=== PATIENT | male | born 1985 | race Caucasian/White ===

== ENCOUNTER 2018-07-23 15:35 | Emergency (ER) | payer OTHER ==
[2018-07-23 15:40] VITALS: BP 141/94; PULSE 93; RESP 20; TEMP 98.1
--- NOTE | 2018-07-23 16:12 | ED ---
General Adult HPI - General Chief complaint: ENT Stated complaint: cyst in ear Source: patient, RN notes reviewed Mode of arrival: ambulatory Limitations: no limitations - History of Present Illness Initial comments: Patient is a 32-year-old male who presents the emergency department with complaint of left cheek bump for 1 year. He reports that recently it got worse , but has started to get better again. He reports picking at it. He reports having a similar bump in the past removed by his vp of global marketing. Patient denies any recent fever, chills, shortness of breath, chest pain, back pain, abdominal pain, nausea or vomiting, numbness or tingling, headaches or visual changes, or any other complaints. - Related Data Previous Rx's Medication Instructions Recorded Amoxicillin/Potassium Clav 1 each PO Q12HR 7 Days 07/23/18 [Augmentin 875-125 Tablet] Allergies Allergy/AdvReac Type Severity Reaction Status Date / Time No Known Allergies Allergy Verified 07/23/18 15:40 Review of Systems ROS Statement: Those systems with pertinent positive or pertinent negative responses have been documented in the HPI. ROS Other: All systems not noted in ROS Statement are negative. Past Medical History Additional Past Medical History / Comment(s): hypoglycemia History of Any Multi-Drug Resistant Organisms: None Reported Past Surgical History: No Surgical Hx Reported Past Psychological History: Anxiety, Depression Smoking Status: Current every day smoker Past Alcohol Use History: None Reported Past Drug Use History: Marijuana General Exam Limitations: no limitations General appearance: alert, in no apparent distress Head exam: Present: atraumatic, normocephalic, other (2x2 cm nodule that is soft and erythematous in the center. No drainage. No induration.) Eye exam: Present: normal appearance ENT exam: Present: normal oropharynx, TM's normal bilaterally, normal external ear exam Neck exam: Present: normal inspection Respiratory exam: Present: normal lung sounds bilaterally. Absent: wheezes, rales, rhonchi Cardiovascular Exam: Present: regular rate, normal rhythm Neurological exam: Present: alert, oriented X3 Skin exam: Present: warm, dry Course Vital Signs 07/23/18 15:36 Temperature 98.1 F Pulse Rate 93 Respiratory 20 Rate Blood Pressure 141/94 O2 Sat by Pulse 99 Oximetry Medical Decision Making - Medical Decision Making Patient reports having a vp of global marketing already. He has been instructed to follow-up with his vp of global marketing. Patient given Decadron here. Will prescribe Augmentin. Case discussed in detail with attending physician Dr. Vega. Disposition Clinical Impression: Cyst Disposition: HOME SELF-CARE Condition: Good Additional Instructions: Follow-up with your vp of global marketing and PCP in 1 to 2 days. Please take antibiotic as prescribed. Keep the area clean. Return to the emergency department if your symptoms worsen or other concerns. Prescriptions: Amoxicillin/Potassium Clav [Augmentin 875-125 Tablet] 1 each PO Q12HR 7 Days Is patient prescribed a controlled substance at d/c from ED?: No Referrals: None,Stated [Primary Care Provider] - 1-2 days Lyn Degroot MD [STAFF PHYSICIAN] - 1-2 days
[2018-07-23] MEDS ORDERED: DEXAMETHASONE 4 MG TAB PO STA (16:36)
== END 2018-07-23 16:54 | disposition home or self-care (01) ==
LOC: EC 15:35
DX: L72.8 Other follicular cysts of the skin and subcutaneous tissue (principal); F17.200 Nicotine dependence, unspecified, uncomplicated
CPT/HCPCS: 99282; J8540